=== PATIENT | female | born 1955 | race Caucasian/White ===

== ENCOUNTER → 2018-07-23 | Day surgery (SDC) | payer OTHER ==
[~2018-07-23] MED LIST: ACYC15OI TP; ACYC800T PO; ASPI325T11 PO; ASPI81TA59 PO; BIOT25006 PO; CITA40TA5 PO; DILT120C80 PO; FLUT12HF2 IH; FURO20TA3 PO; GABA-586 PO; IV RINGERS,LACTATED 1000ML 1,000 ML IV SCH; LEVO50TA PO; LIDOCAINE 1% PF 2 ML VIAL. ID PRN; LORA0.5T PO; LURA40TA PO; MIDAZOLAM HCL/PF 2 MG/2 ML VIAL. IV PRN; MIDO5TAB PO; NITR0.4T22 SL; OMEP20CA9 PO; ONDA4TAB12 PO; OXYC-411 PO; PRAS10TA9 PO; PROM25TA10 PO; PROPOFOL 20 ML IV ONE; SLOW RELEASE I142 MG PO; SUMA100T4 PO; TRAM50TA PO; TRIA10.8 NS; VENTOLIN HFA18 GM INH; VITA400T4 PO; fentaNYL PF VIAL 100 MCG/2 ML VIAL IV PRN
[2018-07-23 13:20] VITALS: BP 117/77
--- NOTE | 2018-07-24 17:10 | PATHOLOGY ---
[facility] Accession Number: [id number] . 01 Material submitted: . SIGMOID BIOPSY . 01 Clinician provided ICD-10: K62.5 . 01 Clinical history: . Rectal bleeding . 02 Diagnosis: Colon, sigmoid, biopsy: - Findings consistent with diversion colitis (please see microscopic). (SKM:ramon; 07/24/2018) QMS/07/24/2018 . 02 Electronically signed: . Mike Means MD, Pathologist NPI- [id number] . 01 Gross description: . Received in formalin labeled "India Villaseñor, sigmoid BX, rule out diversion colitis," are 6 segments of bennett soft tissue measuring 0.8 x 0.9 x 0.2 cm in aggregate dimensions and ranging from 0.2 to 0.4 cm in maximum dimension. The specimen is submitted entirely in cassette A1. (TSD; 07/23/2018) TOB/TOB . 02 Microscopic: . Sections show fragments of colonic mucosa in which there is mild glandular architectural distortion. Submucosal lymphoid hyperplasia is present along with focal areas of acute cryptitis. (SKM:ramon; 07/24/2018) . 02 Pathologist provided ICD-10: K52.9 . 02 CPT . 881405 Specimen Comment: A courtesy copy of this report has been sent to Specimen Comment: [phone], . Specimen Comment: Report sent to / DR ALEXANDRA Performed at: 01 [facility] [address], [place] [id number] MD Samy Dai MD Phone: [phone] Performed at: 02 [facility] [id number] MD Ralph Garcia MD Phone: [phone]
== END | disposition home or self-care (01) ==
LOC: SURG 11:37
PROVIDERS: ATTEND Internal Medicine Gastroenterology
DX: K64.0 First degree hemorrhoids (principal); K62.89 Other specified diseases of anus and rectum; I10 Essential (primary) hypertension; I25.10 Atherosclerotic heart disease of native coronary artery without angina pectoris; I25.2 Old myocardial infarction; F17.210 Nicotine dependence, cigarettes, uncomplicated; K21.9 Gastro-esophageal reflux disease without esophagitis; J44.9 Chronic obstructive pulmonary disease, unspecified; F32.9 Major depressive disorder, single episode, unspecified; E78.00 Pure hypercholesterolemia, unspecified; E03.9 Hypothyroidism, unspecified; D64.9 Anemia, unspecified; Z87.19 Personal history of other diseases of the digestive system; Z93.2 Ileostomy status; Z98.890 Other specified postprocedural states; M79.7 Fibromyalgia; M19.90 Unspecified osteoarthritis, unspecified site; Z79.01 Long term (current) use of anticoagulants; Z79.899 Other long term (current) drug therapy; Z79.82 Long term (current) use of aspirin; Z72.89 Other problems related to lifestyle; Z88.1 Allergy status to other antibiotic agents; Z88.0 Allergy status to penicillin; Z91.041 Radiographic dye allergy status; Z88.8 Allergy status to other drugs, medicaments and biological substances; Z90.49 Acquired absence of other specified parts of digestive tract; Z82.49 Family history of ischemic heart disease and other diseases of the circulatory system; Z90.710 Acquired absence of both cervix and uterus; Z90.11 Acquired absence of right breast and nipple; Z95.5 Presence of coronary angioplasty implant and graft
CPT/HCPCS: 45331; 88305; J2704

== ENCOUNTER 2018-11-22 22:42 | Inpatient (IN) | payer OTHER ==
[~2018-11-22] VITALS: Ht 165.1 cm; Wt 83.5 kg
[~2018-11-22 22:42] MED LIST changes: -DILT120C80 PO; +DILT120C85 PO; -GABA-586 PO; +GABA300C18 PO; -IV RINGERS,LACTATED 1000ML 1,000 ML IV SCH; -LIDOCAINE 1% PF 2 ML VIAL. ID PRN; -MIDAZOLAM HCL/PF 2 MG/2 ML VIAL. IV PRN; +OMEP20CA10 PO; -OMEP20CA9 PO; -PROPOFOL 20 ML IV ONE; -fentaNYL PF VIAL 100 MCG/2 ML VIAL IV PRN
[2018-11-22] MEDS: IV NORMAL SALINE 1000ML BAG 1,000 ML IV SCH (23:00)
[2018-11-22] MEDS: MORPHINE SULFATE 4 MG/ML VIAL. IV PRN (23:12)
[2018-11-22] MEDS: ONDANSETRON PF 4 MG/2 ML VIAL. IV PRN (23:12)
[2018-11-23] MEDS: MORPHINE SULFATE 4 MG/ML VIAL. IV PRN ×8 (01:27→22:11)
[2018-11-23 03:00] VITALS: BP 98/57
--- NOTE | 2018-11-23 03:09 | NUR ---
The patient, PEREZ HOOD, 63 y/o, F was admitted by SHELIA MELARA MD. Pt. arrived at 2235 11/22/18 via [place] by EMS as a [facility] transfer. Pt. A&Ox4. complained of pain 07/01. VSS with a slightly elevated HR. Pt. was given written information regarding hospital policies, unit procedures and contact persons. Valuables were left with pt. She did not want anything sent down to security. Bed low, call light within reach. Will continue to monitor.
--- NOTE | 2018-11-23 03:13 | NUR ---
Dr. Mcguire called for orders around 0. Orders placed and implemented.
[2018-11-23 04:48] LABS: BASO % 0 % (0-3); EOS % 0 % (0-3); HEMATOCRIT 32.5 % (36.0-47.0); HEMOGLOBIN 10.2 g/dL (12.0-15.5); LYMPH % 20 % (24-48); MEAN CORPUSCULAR HEMOGLOBIN 29 pg (25-35); MEAN CORPUSCULAR HGB CONC 31 g/dL (31-37); MEAN CORPUSCULAR VOLUME 94 fL (79-100); MONO # 0.7 x10^3/uL (0.0-1.1); MONO % 14 % (0-9); NEUT # 3.3 x10^3uL (1.8-7.7); NEUT % 65 % (31-73); PLATELET COUNT 168 x10^3/uL (140-400); RED BLOOD COUNT 3.46 x10^6/uL (3.50-5.40); RED CELL DISTRIBUTION WIDTH 15.8 % (11.5-14.5)
[2018-11-23 05:14] LABS: ALBUMIN 2.4 g/dL (3.4-5.0); ALBUMIN/GLOBULIN RATIO 0.7 (1.0-1.7); CALCIUM 8.1 mg/dL (8.5-10.1); CREATININE 0.9 mg/dL (0.6-1.0); GFR 63.7; POTASSIUM 4.1 mmol/L (3.5-5.1); TOTAL BILIRUBIN 0.4 mg/dL (0.2-1.0); TOTAL PROTEIN 5.9 g/dL (6.4-8.2)
[2018-11-23] MEDS: ONDANSETRON PF 4 MG/2 ML VIAL. IV PRN ×3 (05:51→22:11)
[2018-11-23 07:00] VITALS: BP 104/71
--- NOTE | 2018-11-23 09:56 | HP ---
ADMIT DATE: 11/22/2018 HISTORY OF PRESENT ILLNESS: The patient is a 63-year-old female patient who was admitted to [facility] through the Emergency Room complaining of abdominal pain, nausea and dry heaving. She apparently has not had any bowel movement for 2 days, has not had any gas. She has emptied her ileostomy once a day before admission, there was only small amount of fluid in her stool. She has had a history of small-bowel obstruction. The last time she was admitted to [facility] was in 01/2018. She was extensively investigated in the Emergency Room. Her lab work was generally unremarkable. Her acute abdomen series showed that the heart is not enlarged. Mediastinal and hilar contours are normal. No focal parenchymal airspace opacity. No pleural effusion, pneumothorax, cervical spine fusion, hardware were partially profiled. No abnormal small or large bowel loop dilatation. Cholecystectomy clips are seen. Moderate amount of colonic stool. No abnormal soft tissue mass effect, no suspicious calcification and no free intraperitoneal gas. She did have a CT scan of the abdomen and pelvis, which basically showed that the changes of the right lower quadrant ileostomy dilatation of the bowel proximal to this suggesting bowel obstruction. She did have borderline hepatomegaly in accounting for post-cholecystectomy changes. No biliary ductal dilatation. She has had an NG tube placed and was kept n.p.o., continued IV fluid, pain medication and antiemetic, and she did actually very well yesterday morning. We clamped her NG tube as she started passing gas and also has emptied her ileostomy twice. Yesterday evening, she developed severe abdominal pain in the right lower quadrant, and we did repeat CT scan of the abdomen and pelvis, actually it was done IV with both oral and IV contrast, showed that continued to be some dilated bowel loops in the abdomen, thought to be small bowel. The degree of dilatation actually to be slightly worse, although contrast now appears to have extended through all the loops in today's ostomy suggesting that there is no complete obstruction. Because of continued complaint of pain, a decision was made to transfer her to [facility] to consult the surgical team. PAST MEDICAL HISTORY: Significant for recurrent bowel obstruction, status post ileostomy. She has coronary artery disease, status post stent deployment. Congestive heart failure, hypertension, hyperlipidemia, migraine headache, gastroesophageal reflux disease, bipolar disorder, osteoarthritis, chronic renal insufficiency and hypothyroidism. PAST SURGICAL HISTORY: Significant for cholecystectomy, colectomy with ileostomy and percutaneous coronary intervention with stent deployment. ALLERGIES: SHE IS ALLERGIC TO SULFA DRUGS, PENICILLIN, ATORVASTATIN, CLONAZEPAM, ERYTHROMYCIN, FENOFIBRATE, IODINE, LORATADINE, PREGABALIN, RANEXA, CRESTOR, SERTRALINE, SILVER SULFADIAZINE AND SIMVASTATIN. FAMILY HISTORY: Positive for hypertension. SOCIAL HISTORY: The patient quit smoking almost a year ago. She does not drink alcohol or use recreational drugs. She is retired from [employer]. She lives with her , son and grandson. MEDICATIONS: She is currently on following medications: She is on promethazine 25 mg every 6 hours as needed, fexofenadine 180 mg once a day, albuterol sulfate 1.5 mg 3 mL by nebulizer twice a day, omega-3 fatty acid 1000 mg daily, aspirin 81 mg once a day, oxycodone/APAP 10/325 one tablet every 4 hours, gabapentin 300 mg 3 times a day, amitriptyline 25 mg at bedtime, citalopram hydrobromide 40 mg daily. She is on Latuda 40 mg p.o. at bedtime, lorazepam 0.5 mg daily. She is also on furosemide 20 mg daily p.r.n., Flonase. She uses oxygen, Advair Diskus 250/50 one inhalation twice a day, Nasacort 1 spray to each nostril once a day, magnesium oxide 400 mg twice a day, ondansetron 4 mg every 4 hours, omeprazole 20 mg once a day, levothyroxine sodium 50 mcg once a day, Biotin 2500 mcg capsules daily, vitamin E 800 units once a day, cranberry extract 200 mg daily. She is on midodrine 5 mg twice a day. PHYSICAL EXAMINATION: GENERAL: When I examined her this morning, she was resting flat comfortably, in no apparent distress. She is somewhat cushingoid, pale, not jaundiced, cyanosis, or thyromegaly. No jugular venous distension. No lower limb edema. VITAL SIGNS: Her heart rate was 101, blood pressure was 104/71, temperature was 98.2, respiratory rate was 18 and oxygen saturation was 90% on room air. HEAD, EYES, EARS, NOSE AND THROAT: Showed normocephalic, atraumatic. She has an NG tube to the right nostril. It is clamped. NECK: Supple. HEART: Showed normal first and second heart sounds with no gallop, rub or murmur. CHEST: Clear to auscultation. No crepitation or rhonchi. ABDOMEN: Distended, soft, with tenderness mostly in the right lower quadrant. She has an ileostomy bag with some liquid stools. There is no guarding or rigidity. No organomegaly. All hernial orifices intact. Bowel sounds normal. NEUROLOGIC: She is awake, alert, responding appropriately. All cranial nerves intact. EXTREMITIES: She moves extremities without difficulty. She ambulates without assistance or assistive devices. LABORATORY DATA: Her lab work this morning showed a white cell count 5000, hemoglobin 10, hematocrit 32, MCV 94 and platelet count of 168,000. Her chemistry showed a serum sodium 140, potassium 4, chloride 103, bicarbonate 31, anion gap of 6, BUN 7, creatinine 0.9, estimated GFR was 64 mL per minute. Her glucose was 88, calcium was 8.1. Total bilirubin, AST, ALT were normal. Alkaline phosphatase 118, total protein was 5.9, albumin was 2.4. PLAN: To continue with the IV fluid, continue with the pain medication and antiemetic. Her NG tube is clamped. We will consult the surgical team and decide further management accordingly. SHELIA MELARA MD DR: ELEUTERIO/tommie JOB#: [id number] / [id number]
--- NOTE | 2018-11-23 10:44 | PDOC2 ---
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 History of SBO, usually resolve with conservative measures. Multiple abdominal surgeries including ileostomy. Currently feels better, ostomy with stool and gas Past Medical History Cardiovascular: CAD, HTN Pulmonary: COPD GI: GERD, Other Psych: Bipolar, Other Musculoskeletal: Osteoarthritis Past Surgical History Past Surgical History: Cholecystectomy, Colectomy, Colon Resection, Other Family History Family History: Hypertension Social History <1 pack per day ALCOHOL: rare Drugs: None Lives: with Family Current Medications Current Medications Current Medications Ondansetron HCl (Zofran) 4 mg PRN Q6HRS PRN IV NAUSEA/VOMITING 1ST CHOICE Last administered on 11/23/18at 05:51; Start 11/22/18 at 23:00 Sodium Chloride 1,000 ml @ 75 mls/hr [id number] IV Last administered on 11/22/18at 23:00; Start 11/22/18 at 23:00 Morphine Sulfate (Morphine Sulfate) 4 mg PRN Q2HR PRN IV SEVERE PAIN Last administered on 11/23/18at 09:31; Start 11/22/18 at 23:00 Prochlorperazine Edisylate (Compazine) 10 mg PRN Q6HRS PRN IV NAUSEA/VOMITING; Start 11/23/18 at 09:45 Active Scripts Active Aspirin Ec (Aspirin) 325 Mg Tablet.dr 325 Mg PO DAILYWBKFT Slow Release Iron (Ferrous Sulfate) 142 Mg Tablet.er 142 Mg PO DAILYWBKFT Reported Midodrine Hcl 5 Mg Tablet 5 Mg PO TID Biotin 2,500 Mcg Capsule 2,000 Mcg PO DAILY Vitamin E (Vitamin E Acid Succinate) 400 Unit Tablet 800 Unit PO DAILY Nasacort (Triamcinolone Acetonide) 10.8 Ml Igo 2 Igo NS DAILY Promethazine Hcl 25 Mg Tablet 1 Tab PO PRN Q6HRS Acyclovir 15 Gm Oint...g. 1 Candice TP 5XDAY Acyclovir 800 Mg Tablet 1 Tab PO PRN TID PRN Latuda (Lurasidone Hcl) 40 Mg Tablet 1 Tab PO QHS Ondansetron Odt (Ondansetron) 4 Mg Tab.rapdis 1 Tab PO PRN Q4HRS PRN Oxycodone-Acetaminophen 10-325 (Oxycodone Hcl/Acetaminophen) 1 Each Tablet 1 Tab PO Q4HRS NITROGLYCERIN SubLingual (Nitroglycerin) 0.4 Mg Tab.subl 0.4 Mg SL PRN Q5MIN PRN Ventolin Hfa Inhaler (Albuterol Sulfate) 18 Gm Hfa.aer.ad 2 Puff INH PRN Q4HRS PRN Advair Hfa 115-21 Mcg Inhaler (Fluticasone/Salmeterol) 12 Gm Hfa.aer.ad 1 Inh IH BID Furosemide 20 Mg Tablet 1 Tab PO DAILY Synthroid (Levothyroxine Sodium) 50 Mcg Tablet 1 Tab PO DAILY Omeprazole 20 Mg Capsule.dr 1 Cap PO DAILY Citalopram Hbr (Citalopram Hydrobromide) 40 Mg Tablet 1 Tab PO DAILY Sumatriptan Succinate 100 Mg Tablet 100 Mg PO ONCE PRN Lorazepam 0.5 Mg Tablet 1 Tab PO DAILY Tramadol Hcl 50 Mg Tablet 2 Tab PO BID Gabapentin 300 Mg Capsule 300 Mg PO TID Allergies Allergies: Coded Allergies: Penicillins (Verified Allergy, Intermediate, 07/23/18) Sulfa (Sulfonamide Antibiotics) (Verified Allergy, Intermediate, 07/23/18) atorvastatin (Verified Allergy, Intermediate, 07/23/18) clonazepam (Verified Allergy, Intermediate, 07/23/18) Tolerated midazolam erythromycin base (Verified Allergy, Intermediate, 07/23/18) fenofibrate (Verified Allergy, Intermediate, 07/23/18) iodine (Verified Allergy, Intermediate, 07/11/16) loratadine (Verified Allergy, Intermediate, 07/23/18) pregabalin (Verified Allergy, Intermediate, 07/23/18) ranolazine (Verified Allergy, Intermediate, 07/23/18) rosuvastatin (Verified Allergy, Intermediate, 07/23/18) sertraline (Verified Allergy, Intermediate, 07/23/18) silver sulfadiazine (Verified Allergy, Intermediate, 07/23/18) simvastatin (Verified Allergy, Intermediate, 07/23/18) ROS General: No: Chills, Other (fevers) PSYCHOLOGICAL ROS: No: Anxiety, Depression Eyes: No Blurry vision, No Double vision HEENT: No: Heacaches, Sore Throat Hematological and Lymphatic: No: Bleeding Problems, Blood Clots Respiratory: No: Cough, Shortness of breath Cardiovascular: No Chest Pain, No Palpitations Gastrointestinal: Yes Other (see hpi) Genitourinary: No Dysuria, No Hematuria Musculoskeletal: No Joint Pain, No Muscle Pain Neurological: No Confusion, No Numbness/Tingling Skin: No Pruritus, No Rash Physical Exam General: Alert, Oriented X3, Cooperative, No acute distress HEENT: Other (NG in place) Lungs: Clear to auscultation, Normal air movement Heart: Regular rate, Normal S1, Normal S2 Abdomen: Soft, No tenderness, Other (ostomy with stool, multiple scars ) Extremities: No clubbing, No cyanosis Skin: No rashes, No breakdown Neuro: Normal speech, Sensation intact MUSCULOSKELETAL: No deformity, No swelling Vitals VITALS Vital Signs Date Time Temp Pulse Resp B/P (MAP) Pulse Ox O2 Delivery O2 Flow Rate FiO2 11/23/18 10:16 90 Room Air 11/23/18 07:00 98.2 101 18 104/71 (82) 98.2 Labs Labs Laboratory Tests Test 11/23/18 04:15 White Blood Count 5.0 x10^3/uL (4.0-11.0) Red Blood Count 3.46 x10^6/uL (3.50-5.40) Hemoglobin 10.2 g/dL (12.0-15.5) Hematocrit 32.5 % (36.0-47.0) Mean Corpuscular Volume 94 fL (79-100) Mean Corpuscular Hemoglobin 29 pg (25-35) Mean Corpuscular Hemoglobin Concent 31 g/dL (31-37) Red Cell Distribution Width 15.8 % (11.5-14.5) Platelet Count 168 x10^3/uL (140-400) Neutrophils (%) (Auto) 65 % (31-73) Lymphocytes (%) (Auto) 20 % (24-48) Monocytes (%) (Auto) 14 % (0-9) Eosinophils (%) (Auto) 0 % (0-3) Basophils (%) (Auto) 0 % (0-3) Neutrophils # (Auto) 3.3 x10^3uL (1.8-7.7) Lymphocytes # (Auto) 1.0 x10^3/uL (1.0-4.8) Monocytes # (Auto) 0.7 x10^3/uL (0.0-1.1) Eosinophils # (Auto) 0.0 x10^3/uL (0.0-0.7) Basophils # (Auto) 0.0 x10^3/uL (0.0-0.2) Sodium Level 140 mmol/L (136-145) Potassium Level 4.1 mmol/L (3.5-5.1) Chloride Level 103 mmol/L (98-107) Carbon Dioxide Level 31 mmol/L (21-32) Anion Gap 6 (6-14) Blood Urea Nitrogen 7 mg/dL (7-20) Creatinine 0.9 mg/dL (0.6-1.0) Estimated GFR (Cockcroft-Gault) 63.7 BUN/Creatinine Ratio 8 (6-20) Glucose Level 88 mg/dL (70-99) Calcium Level 8.1 mg/dL (8.5-10.1) Total Bilirubin 0.4 mg/dL (0.2-1.0) Aspartate Amino Transf (AST/SGOT) 34 U/L (15-37) Alanine Aminotransferase (ALT/SGPT) 24 U/L (14-59) Alkaline Phosphatase 118 U/L (46-116) Total Protein 5.9 g/dL (6.4-8.2) Albumin 2.4 g/dL (3.4-5.0) Albumin/Globulin Ratio 0.7 (1.0-1.7) Laboratory Tests Test 11/23/18 04:15 White Blood Count 5.0 x10^3/uL (4.0-11.0) Red Blood Count 3.46 x10^6/uL (3.50-5.40) Hemoglobin 10.2 g/dL (12.0-15.5) Hematocrit 32.5 % (36.0-47.0) Mean Corpuscular Volume 94 fL (79-100) Mean Corpuscular Hemoglobin 29 pg (25-35) Mean Corpuscular Hemoglobin Concent 31 g/dL (31-37) Red Cell Distribution Width 15.8 % (11.5-14.5) Platelet Count 168 x10^3/uL (140-400) Neutrophils (%) (Auto) 65 % (31-73) Lymphocytes (%) (Auto) 20 % (24-48) Monocytes (%) (Auto) 14 % (0-9) Eosinophils (%) (Auto) 0 % (0-3) Basophils (%) (Auto) 0 % (0-3) Neutrophils # (Auto) 3.3 x10^3uL (1.8-7.7) Lymphocytes # (Auto) 1.0 x10^3/uL (1.0-4.8) Monocytes # (Auto) 0.7 x10^3/uL (0.0-1.1) Eosinophils # (Auto) 0.0 x10^3/uL (0.0-0.7) Basophils # (Auto) 0.0 x10^3/uL (0.0-0.2) Sodium Level 140 mmol/L (136-145) Potassium Level 4.1 mmol/L (3.5-5.1) Chloride Level 103 mmol/L (98-107) Carbon Dioxide Level 31 mmol/L (21-32) Anion Gap 6 (6-14) Blood Urea Nitrogen 7 mg/dL (7-20) Creatinine 0.9 mg/dL (0.6-1.0) Estimated GFR (Cockcroft-Gault) 63.7 BUN/Creatinine Ratio 8 (6-20) Glucose Level 88 mg/dL (70-99) Calcium Level 8.1 mg/dL (8.5-10.1) Total Bilirubin 0.4 mg/dL (0.2-1.0) Aspartate Amino Transf (AST/SGOT) 34 U/L (15-37) Alanine Aminotransferase (ALT/SGPT) 24 U/L (14-59) Alkaline Phosphatase 118 U/L (46-116) Total Protein 5.9 g/dL (6.4-8.2) Albumin 2.4 g/dL (3.4-5.0) Albumin/Globulin Ratio 0.7 (1.0-1.7) Assessment/Plan Assessment/Plan SBO resolving NG clamped VINICIO ROBLES MD 11/23/18 5001: CONSULT Assessment/Plan Assessment/Plan pt seen, interviewed and examined agree with above NG trial today will follow Thanks for consult pt had been seen, interviewed and examined by Dr Moser prior to my visit he will provide surgical care Thanks PAUL THURSTON APRN Nov 23, 2018 10:44 VINICIO ROBLES MD Nov 23, 2018 12:45
[2018-11-23 11:00] VITALS: BP 120/76
[2018-11-23] MEDS: PROCHLORPERAZINE 10 MG/2 ML VIAL. IV PRN ×2 (11:26→18:56)
[2018-11-23] MEDS: IV NORMAL SALINE 1000ML BAG 1,000 ML IV SCH (11:32)
--- NOTE | 2018-11-23 11:41 | NUR ---
SW following for discharge planning. Discussed with RN, pt was transferred form [place]. Pt is from home, awaiting further information for plan of care. MONI will continue to follow for discharge planning.
[2018-11-23 15:00] VITALS: BP 136/82
[2018-11-23 19:00] VITALS: BP 152/84
--- NOTE | 2018-11-23 21:30 | NUR ---
Patient called to the nurse's station, about the IV hurting 10/10 pain. IV fluid stopped at this time. IV assessed, tendered at site. Advised pt, RN will initiate a new IV access.
[2018-11-23 23:00] VITALS: BP 126/78
[2018-11-24] MEDS: MORPHINE SULFATE 4 MG/ML VIAL. IV PRN ×5 (02:22→18:19)
[2018-11-24] MEDS: IV NORMAL SALINE 1000ML BAG 1,000 ML IV SCH ×2 (02:22→15:00)
[2018-11-24] MEDS: PROCHLORPERAZINE 10 MG/2 ML VIAL. IV PRN ×2 (02:26→15:29)
[2018-11-24 03:00] VITALS: BP 130/86
[2018-11-24 07:00] VITALS: BP 146/87
--- NOTE | 2018-11-24 09:20 | PDOC ---
PAUL THURSTON JAVA [employer] DEVELOPER 11/24/18 0920: SURGICAL PROGRESS NOTE Subjective Ng clamped since yesterday no n/v ostomy functioning no pain Vital Signs Vital Signs Date Time Temp Pulse Resp B/P (MAP) Pulse Ox O2 Delivery O2 Flow Rate FiO2 11/24/18 08:29 Room Air 11/24/18 07:00 98.2 102 18 146/87 (106) 74 98.2 I&O Intake and Output 11/24/18 07:00 Intake Total 667 ml Output Total 640 ml Balance 27 ml Intake IV Total 667 ml Output Stool Total 400 ml Gastric Drainage Total 240 ml # Voids 2 General: Alert, Oriented X3, Cooperative, No acute distress Abdomen: Soft, Other (ND, NTTP, ostomy with stool) Labs Laboratory Tests Test 11/23/18 04:15 White Blood Count 5.0 x10^3/uL (4.0-11.0) Red Blood Count 3.46 x10^6/uL (3.50-5.40) Hemoglobin 10.2 g/dL (12.0-15.5) Hematocrit 32.5 % (36.0-47.0) Mean Corpuscular Volume 94 fL (79-100) Mean Corpuscular Hemoglobin 29 pg (25-35) Mean Corpuscular Hemoglobin Concent 31 g/dL (31-37) Red Cell Distribution Width 15.8 % (11.5-14.5) Platelet Count 168 x10^3/uL (140-400) Neutrophils (%) (Auto) 65 % (31-73) Lymphocytes (%) (Auto) 20 % (24-48) Monocytes (%) (Auto) 14 % (0-9) Eosinophils (%) (Auto) 0 % (0-3) Basophils (%) (Auto) 0 % (0-3) Neutrophils # (Auto) 3.3 x10^3uL (1.8-7.7) Lymphocytes # (Auto) 1.0 x10^3/uL (1.0-4.8) Monocytes # (Auto) 0.7 x10^3/uL (0.0-1.1) Eosinophils # (Auto) 0.0 x10^3/uL (0.0-0.7) Basophils # (Auto) 0.0 x10^3/uL (0.0-0.2) Sodium Level 140 mmol/L (136-145) Potassium Level 4.1 mmol/L (3.5-5.1) Chloride Level 103 mmol/L (98-107) Carbon Dioxide Level 31 mmol/L (21-32) Anion Gap 6 (6-14) Blood Urea Nitrogen 7 mg/dL (7-20) Creatinine 0.9 mg/dL (0.6-1.0) Estimated GFR (Cockcroft-Gault) 63.7 BUN/Creatinine Ratio 8 (6-20) Glucose Level 88 mg/dL (70-99) Calcium Level 8.1 mg/dL (8.5-10.1) Total Bilirubin 0.4 mg/dL (0.2-1.0) Aspartate Amino Transf (AST/SGOT) 34 U/L (15-37) Alanine Aminotransferase (ALT/SGPT) 24 U/L (14-59) Alkaline Phosphatase 118 U/L (46-116) Total Protein 5.9 g/dL (6.4-8.2) Albumin 2.4 g/dL (3.4-5.0) Albumin/Globulin Ratio 0.7 (1.0-1.7) Assessment/Plan improving dc ng, start clears JAMES SHIPLEY MD 11/24/18 1324: SURGICAL PROGRESS NOTE Assessment/Plan Patient seen and evaluated, shawna brice, NT Agree with Teto's assessment and plan. PAUL THURSTON APRN Nov 24, 2018 09:20 JAMES SHIPLEY MD Nov 24, 2018 13:24
[2018-11-24 11:00] VITALS: BP 140/82
--- NOTE | 2018-11-24 13:03 | NUR ---
SW following. Discussed with RN, NG tube has been taken out. Pt is on clear liquid diet. SW will continue to follow.
[2018-11-24 15:00] VITALS: BP 102/58
[2018-11-24] MEDS: ALBUTEROL SULFATE 2.5 MG/3 ML NEBU. NEB SCH ×2 (15:41→20:57)
--- NOTE | 2018-11-24 16:27 | RAD ---
Single view of the chest. 11/24/2018 1:47 PM Indication: PRODUCTIVE COUGH Comparison: Chest radiograph July 10, 2016 Findings: There is no focal consolidation. There is no pleural effusion or pneumothorax. The cardiomediastinal silhouette and pulmonary vasculature are within normal limits. No acute osseous abnormalities are seen. Impression: No evidence of acute cardiopulmonary process. Electronically signed by: Jerry Chaves MD (11/24/2018 4:24 PM) [facility]
[2018-11-24 19:20] VITALS: BP 113/75
[2018-11-24] MEDS ORDERED: FLUTICASONE 50MCG/NASAL SPRAY 16GM BOTTLE. NS SCH (21:00)
[2018-11-24] MEDS: oxyCODONE/APAP 10/325 1 TAB TABLET PO PRN (21:07)
[2018-11-24] MEDS: traMADol 50 MG TABLET PO PRN (21:07)
--- NOTE | 2018-11-24 22:13 | PN ---
DATE: 11/24/2018 SUBJECTIVE: The patient is resting, slightly propped up in bed, in no apparent distress. On questioning her, she denied any complaints, in particular, no nausea, no vomiting. Her NG tube has been clamped for more than 48 hours now. Her ileostomy is functioning. Her pain is much less than before. Apparently, she was seen by the surgical team and the plan is to discontinue the NG tube and will be started on clear liquid diet. PHYSICAL EXAMINATION: GENERAL: When I examined her this morning, she looked well and was clearly in no apparent respiratory distress, slightly cushingoid, but no jaundiced or cyanosed. No thyromegaly. No jugular venous distension. No limb edema. VITAL SIGNS: Her heart rate was 102, blood pressure was 146/87, temperature was 98.2, respiratory rate was 18, and oxygen saturation was 92%. The rest of the clinical exam is stable, has not changed. LABORATORY DATA: Showed a white cell count 5000, hemoglobin 10, hematocrit 30, MCV 94, and platelet count 268,000. Her chemistry showed a serum sodium 140, potassium 4.1, chloride 103, bicarbonate 31, anion gap of 6, BUN 7, creatinine 0.9, estimated GFR was 64 mL per minute. Her glucose was 88, calcium was 8.1. Total bilirubin, AST, ALT, alkaline phosphatase are normal. Total protein was 5.9, albumin was 2.4. PLAN: To obviously discontinue the NG tube, start her on clear liquid diet. SHELIA MELARA MD DR: ELEUTERIO/tommie JOB#: [id number] / [id number]
[2018-11-24 22:59] VITALS: BP 112/71
[2018-11-25] MEDS: oxyCODONE/APAP 10/325 1 TAB TABLET PO PRN ×4 (01:01→12:34)
[2018-11-25 03:13] VITALS: BP 125/69
[2018-11-25] MEDS: traMADol 50 MG TABLET PO PRN (04:27)
--- NOTE | 2018-11-25 05:54 | RAD ---
CT MAXILLOFACIAL WO CONTRAST dated 11/24/2018 1:47 PM Indication: Sinus congestion, evaluate for sinus diseaseIncreased Sinus Congestion. Comparison: No comparison is available. Technique: Contiguous axial imaging the maxillofacial bones obtained with thin cut coronal and sagittal reconstruction. One or more of the following individualized dose reduction techniques were utilized for this examination: 1. Automated exposure control 2. Adjustment of the mA and/or kV according to patient size 3. Use of iterative reconstruction technique Findings: Paranasal sinuses are clear. No significant mucosal thickening or air-fluid level. Ostiomeatal units and infundibula are patent. Nasal septum is midline. Mastoid air cells and middle ears are clear. No significant soft tissue abnormality. Limited imaged portions the brain parenchyma unremarkable. Degenerative changes at the atlantoaxial joint. IMPRESSION: No significant sinus disease. Electronically signed by: Vick Daugherty MD (11/25/2018 5:50 AM) [facility]
[2018-11-25 06:07] LABS: CALCIUM 8.8 mg/dL (8.5-10.1); CREATININE 0.9 mg/dL (0.6-1.0); GFR 63.7; POTASSIUM 3.3 mmol/L (3.5-5.1)
[2018-11-25 07:00] VITALS: BP 100/59
[2018-11-25] MEDS: ALBUTEROL SULFATE 2.5 MG/3 ML NEBU. NEB SCH ×2 (07:43→10:37)
--- NOTE | 2018-11-25 10:40 | NUR ---
SW following. Discussed with RN, pt from home with family. RN advised no SW needs and anticipates pt will discharge home today with self care.
[2018-11-25 11:00] VITALS: BP 112/71
--- NOTE | 2018-11-25 11:48 | PDOC ---
SURGICAL PROGRESS NOTE Subjective Patient doing quite well tolerating diet and passing stool in her colostomy Vital Signs Vital Signs Date Time Temp Pulse Resp B/P (MAP) Pulse Ox O2 Delivery O2 Flow Rate FiO2 11/25/18 11:00 98.1 92 18 112/71 (85) 94 Room Air 98.1 I&O Intake and Output 11/25/18 06:59 Intake Total 1330 ml Balance 1330 ml Intake Oral 1330 ml # Voids 2 PATIENT HAS A NORIEGA: No General: Alert, Oriented X3, Cooperative, No acute distress Abdomen: Normal bowel sounds, Soft, No tenderness Labs Laboratory Tests Test 11/24/18 11:53 11/25/18 05:07 Glucose (Fingerstick) 244 mg/dL (70-99) Sodium Level 139 mmol/L (136-145) Potassium Level 3.3 mmol/L (3.5-5.1) Chloride Level 101 mmol/L (98-107) Carbon Dioxide Level 32 mmol/L (21-32) Anion Gap 6 (6-14) Blood Urea Nitrogen 3 mg/dL (7-20) Creatinine 0.9 mg/dL (0.6-1.0) Estimated GFR (Cockcroft-Gault) 63.7 Glucose Level 94 mg/dL (70-99) Calcium Level 8.8 mg/dL (8.5-10.1) Laboratory Tests Test 11/24/18 11:53 11/25/18 05:07 Glucose (Fingerstick) 244 mg/dL (70-99) Sodium Level 139 mmol/L (136-145) Potassium Level 3.3 mmol/L (3.5-5.1) Chloride Level 101 mmol/L (98-107) Carbon Dioxide Level 32 mmol/L (21-32) Anion Gap 6 (6-14) Blood Urea Nitrogen 3 mg/dL (7-20) Creatinine 0.9 mg/dL (0.6-1.0) Estimated GFR (Cockcroft-Gault) 63.7 Glucose Level 94 mg/dL (70-99) Calcium Level 8.8 mg/dL (8.5-10.1) Assessment/Plan Resolved partial bowel obstruction would recommend low residue diet okay to discharge from surgical point of view JAMES SHIPLEY MD Nov 25, 2018 11:48
--- NOTE | 2018-11-25 12:55 | NUR ---
Pt discharged home with no additional services. Ambulated to hospital entrance accompanied by spouse. Discharge education and information regarding Dx provided to Pt who verbalized understanding and had no further questions. No changes from previous assessment.
[2018-11-25] MEDS ORDERED: POTASSIUM CHLORIDE 20 MEQ TABLET.ER. PO ONE (13:00)
--- NOTE | 2018-11-25 21:29 | DS ---
DATE OF DISCHARGE: 11/25/2018 HISTORY OF PRESENT ILLNESS: The patient is a 63-year-old female patient who was transferred from [facility] with complaint of abdominal pain. She was initially kept n.p.o. with a clamped NG tube. She did well yesterday and started passing stool in her ileostomy and therefore we started on clear liquid diet and advanced as tolerated. When I saw her today, she denied any abdominal pain. She has been eating and drinking. She has no abdominal pain and passing stool in her ileostomy bag and decision was made to discharge her home, to follow with her primary care physician. She was advised to go on a low residue diet. PHYSICAL EXAMINATION: GENERAL: When I examined her this afternoon, she looked well and was clearly in no apparent respiratory distress, pale, but no jaundice, cyanosis, or thyromegaly. No jugular venous distension. No lower limb edema. VITAL SIGNS: Her heart rate was 92, blood pressure 112/71, temperature was 98.1, respiratory rate was 18 and oxygen saturation was 94%. HEAD, EYES, EARS, NOSE AND THROAT: Normocephalic, atraumatic. NECK: Supple. HEART: Showed normal first and second sounds. No gallop or murmur. CHEST: Clear to auscultation. No crepitation or rhonchi. ABDOMEN: Distended, soft with ileostomy in the right lower quadrant. No guarding or rigidity. No organomegaly. All hernial orifices intact. Bowel sounds normal. NEUROLOGIC: She was awake, alert, responding appropriately. All cranial nerves intact. EXTREMITIES: She moves her extremities without difficulty. She ambulates without assistance or assistive devices. Her intake over the last 24 hours was 660, output 640. LABORATORY DATA: As of this morning, her serum sodium was 139, potassium 3.3, chloride 101, bicarbonate 32, anion gap of 6, BUN 3, creatinine 0.9, estimated GFR was 64 mL per minute. Her glucose was 94, calcium was 8.8. Total bilirubin, AST, ALT, alkaline phosphatase were normal. Total protein was 5.9, albumin was 2.4. DISCHARGE MEDICATIONS: She was discharged home to continue on following medications: Acyclovir 800 mg 3 times a day as needed, acyclovir ointment to apply topically 5 times a day, Albuterol sulfate 2 puffs every 4 hours, aspirin 325 mg daily with breakfast, Biotin 2500 mcg capsule once a day, citalopram hydrobromide 40 mg once a day, ferrous sulfate 142 mg daily with breakfast, Advair Diskus 115/21 mcg inhaler 1 inhalation twice a day, furosemide 20 mg once a day, gabapentin 300 mg 3 times a day, levothyroxine sodium 50 mcg once a day, lorazepam 0.5 mg daily, lurasidone for Latuda 40 mg at bedtime, midodrine 5 mg 3 times a day, nitroglycerin 0.4 mg sublingually every 5 minutes, omeprazole 20 mg daily, ondansetron 4 mg every 4 hours as needed. She is on Percocet 10/325 one tablet every 4 hours, promethazine hydrochloride 25 mg every 6 hours, sumatriptan succinate 100 mg once for migraine headache, tramadol 50 mg she takes 2 tablets twice a day, triamcinolone acetonide for Nasacort 2 sprays to each nostril daily, vitamin E she takes 800 units once a day. FINAL DISCHARGE DIAGNOSES: Partial small-bowel obstruction, resolved. The patient should be on a low residue diet. She has multiple other medical problems including recurrent bowel obstruction status post ileostomy, coronary artery disease status post stent deployment, congestive heart failure, hypertension, hyperlipidemia, migraine headache, gastroesophageal reflux disease, bipolar disorder, osteoarthritis, chronic renal insufficiency and hypothyroidism. SHELIA MELARA MD DR: ELEUTERIO/tommie JOB#: [id number] / [id number]
== END 2018-11-25 12:55 | disposition home or self-care (01) | DRG 389 ==
LOC: 4 NORTH 22:42
PROVIDERS: ADMIT Internal Medicine; ATTEND Internal Medicine
DX: K56.600 Partial intestinal obstruction, unspecified as to cause (principal); I13.0 Hypertensive heart and chronic kidney disease with heart failure and stage 1 through stage 4 chronic kidney disease, or unspecified chronic kidney disease; E03.9 Hypothyroidism, unspecified; E78.5 Hyperlipidemia, unspecified; F31.9 Bipolar disorder, unspecified; I50.9 Heart failure, unspecified; I25.10 Atherosclerotic heart disease of native coronary artery without angina pectoris; K21.9 Gastro-esophageal reflux disease without esophagitis; J44.9 Chronic obstructive pulmonary disease, unspecified; N18.9 Chronic kidney disease, unspecified; Z82.49 Family history of ischemic heart disease and other diseases of the circulatory system; Z93.2 Ileostomy status; Z93.3 Colostomy status; Z95.5 Presence of coronary angioplasty implant and graft; Z87.891 Personal history of nicotine dependence; G43.909 Migraine, unspecified, not intractable, without status migrainosus; M19.90 Unspecified osteoarthritis, unspecified site; Z88.6 Allergy status to analgesic agent; Z88.1 Allergy status to other antibiotic agents; Z88.0 Allergy status to penicillin; Z88.8 Allergy status to other drugs, medicaments and biological substances; Z88.2 Allergy status to sulfonamides
CPT/HCPCS: 36415; 70486; 71045; 80048; 80053; 82962; 85025; 94640; J0780; J2270; J2405; J7030; J7613